=== PATIENT | male | born 2000 | race Caucasian/White ===

== ENCOUNTER 2023-12-10 09:43 | Emergency (ER) | payer OTHER, SELFPAY ==
[2023-12-10 10:00] VITALS: BP 115/81
[2023-12-10 10:53] VITALS: BMI 22.7
--- NOTE | 2023-12-10 11:27 | ED.GENMED ---
History of Present Illness
<Leesa Mcgill DO, Resident - Last Filed: 12/10/23 13:39>
General
Chief Complaint: Throat Problem
Source: patient and family
Time Seen by Provider: 12/10/23 11:14
History of Present Illness
History of Present Illness:
Patient is a 22 YO M with history of Lyme disease presenting to the ED with progressive throat pain. He reports having IgG Lyme last summer and was rediagnosed with IgM Lyme and mono last week. He states skipping his Doxy on Tuesday night and
morning and took a double dose to 'catch up.' Since then the throat pain has worsened. Over the last few days the pain in his throat has worsened, he unable to sleep or swallow, has been having choking sensations, SOB and has lost 10 lbs.
when he eats, he feels half gets stuck and half goes down. Last known fever was yesterday - 101F. Most recently took NyQuil at 2 AM and Doxycycline + 3 500 mg Ibuprofen at 7 AM.
Past History
<Leesa Mcgill DO, Resident - Last Filed: 12/10/23 13:39>
Past History
ED Past Medical History: None
ED Past Surgical History: Other ([place] teeth)
Social History
Tobacco: Non-smoker
Review of Systems
<Leesa Mcgill DO, Resident - Last Filed: 12/10/23 13:39>
Review of Systems
Constitutional: Reports fever, weight loss, fatigue, sleep disturbance and night sweats
EENT: Reports sore throat, mouth pain, mouth swelling and other (throat pain, inability to swallow)
Respiratory: Reports trouble breathing
Cardiac: Reports no symptoms
ABD/GI: Reports no symptoms
Musculoskeletal: Reports neck pain (when palpating lymph nodes)
Skin: Reports no symptoms
Neurological: Reports headache (secondary to sleep deprivation )
Psychiatric: Reports no symptoms
Phy Exam
<Leesa Mcgill DO, Resident - Last Filed: 12/10/23 13:39>
General Physical Exam
General Presentation: well appearing and moderate distress
General age: appears stated age
General Skin: dry, feels hot and flushed
General Habitus: normal
General Mental: alert
ENT Exam
ENT Exam: lymphnodes (posterior lymph nodes ), pharyngeal erythema and other
Cardiovascular Exam
Cardiovascular Exam: regular rate/rhythm, no edema, no gallop, no JVD, no murmur and normal peripheral pulses
Pulmonary Exam
Pulmonary Exam: lungs clear, no respiratory distress, no rales, chest non tender, no crackles, no rhonchi, no stridor, no wheezing and no cough
Musculoskeletal Exam
Musculoskeletal Exam: full ROM and no edema
Skin Exam
Skin Exam: normal color, warm/dry, no rash and no petechia
Psychiatric Exam
Psychiatric Exam: normal mood/affect
Course
<Leesa Mcgill DO, Resident - Last Filed: 12/10/23 13:39>
Orders/Labs/Results
Orders:
Orders
12/10/23 13:16
0.9% Sodium Chloride 1000 ml [Nss] 1,000 ml IV BOLUS
Dexamethasone Sod Phosphate [Decadron] 6 mg IV NOW STA
Ketorolac [Toradol] 15 mg IV NOW STA
Vital Signs
Initial and Last Documented VS:
Initial Vital Signs
Temp Pulse Resp BP Pulse Ox
98.2 F 109 20 115/81 98
12/10/23 10:00 12/10/23 10:00 12/10/23 10:00 12/10/23 10:00 12/10/23 10:00
Last Documented Vital Signs
Temp Pulse Resp BP Pulse Ox
98.2 F 109 20 115/81 98
12/10/23 10:00 12/10/23 10:00 12/10/23 10:00 12/10/23 10:00 12/10/23 10:00
<Eric MarshallSanthosh Cadet DO - Last Filed: 12/10/23 13:30>
Orders/Labs/Results
Orders:
Orders
12/10/23 13:16
0.9% Sodium Chloride 1000 ml [Nss] 1,000 ml IV BOLUS
Dexamethasone Sod Phosphate [Decadron] 6 mg IV NOW STA
Ketorolac [Toradol] 15 mg IV NOW STA
Vital Signs
Initial and Last Documented VS:
Initial Vital Signs
Temp Pulse Resp BP Pulse Ox
98.2 F 109 20 115/81 98
12/10/23 10:00 12/10/23 10:00 12/10/23 10:00 12/10/23 10:00 12/10/23 10:00
Last Documented Vital Signs
Temp Pulse Resp BP Pulse Ox
98.2 F 109 20 115/81 98
12/10/23 10:00 12/10/23 10:00 12/10/23 10:00 12/10/23 10:00 12/10/23 10:00
<Leesa Mcgill DO, Resident - Last Filed: 12/10/23 13:39>
MDM/Problems Addressed
Differential Diagnosis Includes:
mononucleosis, lyme disease
MDM/Problems Addressed:
Pt is a 22 YO M with throat pain, recently diagnosed with [place] and lyme disease. He is stable, currently afebrile and . Pt given IVF, Toradol 15 mg and Decadron 6 mg for symptom management. Given script for Decadron for 3 days.
Chronic conditions affecting care:
Mononucleosis
Acute Exacerbation and/or Progression of Chronic Illness:
mononucleosis
<Leesa Mcgill DO, Resident - Last Filed: 12/10/23 13:39>
*Pulse Oximetry
Patient hypoxic: no
*EKG
Interpreted by ED Provider?: NA
*Showroom Sales Assistant Interpretation
Rate: Showroom Sales Assistant- N/A
*Critical Care Note
Total Time (30-74mins, 75-104mins- exclusive of procedures): Not Applicable
<Leesa Mcgill DO, Resident - Last Filed: 12/10/23 13:39>
Patient Management
Social determinants of health affecting care: Living situation and Strong social support
ED Attending Note
<Leesa Mcgill DO, Resident - Last Filed: 12/10/23 13:39>
-
Portions of this chart may have been created with voice recognition software.� Occasional wrong word or��sound alike� substitutions may have occurred due to the inherent limitations of voice recognition software.
<Eric Cadet DO - Last Filed: 12/10/23 13:30>
ED Attending Note
Patient seen and examined by attending physician: Yes
I performed a history and physical exam of patient and discussed management with resident, I reviewed resident's note and agree with documented findings and plan of care.: Yes
ED Attending Note:
I agree with the residents note
Patient diagnosed recently with Lyme as well as mono. He was prescribed doxycycline for Lyme. Patient has been having difficulty swallowing due to swelling and pain in his throat. He is also had difficulty sleeping due to the discomfort.
General: Awake, Alert, Oriented X3. No acute distress.
Vitals: unremarkable
Head: Atraumatic
Eyes: Pupils equal, EOMI
Throat: Airway intact, enlarged and erythematous tonsils. No evidence for peritonsillar abscess. No stridor.
Neck: Trachea midline
IV hydration, IV steroids, IV Toradol. Patient to be stable for discharge home. Patient concerned that doxycycline is exacerbating his sore throat and fever. I think this is unlikely. Will see how he feels after treatment. Hopefully he can
continue the Doxy but we will give him a prescription for amoxicillin to complete his course of treatment for Lyme if necessary
Discharge Plan
Departure
Patient Disposition: Home (Routine Discharge)
Date of Disposition: 12/10/23
Time of Disposition: 13:33
Patient with high blood pressure during this ER visit?: No
Discharge Problem:
Pharyngitis due to infectious mononucleosis, Lyme disease
Instructions: Sore Throat, Adult (DC), Mononucleosis (DC)
Prescriptions:
New
amoxicillin 500 mg capsule
500 mg PO TID 10 Days Qty: 30 0RF
Referrals:
Zev Lovell MD [Family Provider] - Call in 1-3 days for appt
Hospital Transfer
I certify that the patient requires transfer: No
Interventions
Interventions:
*Risk Screen - Suicide Last Done: 12/10/23 10:53
*General Assessment Last Done: 12/10/23 10:00
*Neglect/Abuse Screening Last Done: 12/10/23 10:53
*ED COVID-19 Vaccine History Last Done: 12/10/23 10:00
ED- Pulmonary Assessment Last Done: 12/10/23 10:53
Discharge Date and Time
Print Language: [id number]
[2023-12-10] MEDS: NSS 1000 IV (13:38)
[2023-12-10] MEDS: TORADOL 15 MG IV (13:38)
[2023-12-10] MEDS: DECADRON 6 MG IV (13:39)
[2023-12-10 14:51] VITALS: BP 112/60
== END 2023-12-10 15:02 | disposition home or self-care (01) ==
LOC: EMR 09:43
PROVIDERS: EMERGENCY PHYSICIAN Emergency Medicine; FAMILY PHYSICIAN Family Medicine
DX: J02.9 Acute pharyngitis, unspecified (principal); B27.90 Infectious mononucleosis, unspecified without complication; A69.20 Lyme disease, unspecified
CPT/HCPCS: 99284; 96374; 96375; 96361